=== PATIENT | male | born 1975 | race Caucasian/White ===

== ENCOUNTER 2018-08-31 20:24 | Emergency (ER) | payer OTHER ==
--- NOTE | 2018-08-31 20:43 | EDPHY ---
H & P Time Seen by Provider: 08/31/18 20:28 HPI/ROS: CHIEF COMPLAINT: Chest pain, shortness of breath HISTORY OF PRESENT ILLNESS: The patient is a 42-year-old male who is smoked for over 20 years. He recently stopped smoking. He has felt short of breath for the past week and a half. His symptoms slightly worsened this evening. He noticed central chest discomfort. He states it is hard to describe. He describes it as a long pain. He is worried that he has COPD. He denies fevers or chills. No worsening cough. No nausea vomiting. No lightheadedness or dizziness. Patient states that he had some tingling in his left toe but that is resolved. REVIEW OF SYSTEMS: 10 systems were reveiwed and are negative with the exception of the elements mentioned in the history of present illness. Past Medical/Surgical History: Includes depression Past surgical history: Includes adenoidectomy, mass removed from the roof of his mouth Social history: Long time smoker. Recently quit. Denies drugs or alcohol Smoking Status: Former smoker Physical Exam: Vitals noted. GENERAL: Anxious appearing, in no acute distress, alert. HEENT: Eyes normal to inspection, normal pharynx, no signs of dehydration. NECK: Normal, supple. RESPIRATORY: Clear to auscultation bilaterally, no rales, rhonchi or wheezing. Chest wall: Mild tenderness to palpation over his sternum. This replicates his pain. CVS: Regular rate and rhythm, no rubs, murmurs, or gallops. ABDOMEN: Soft, nontender, nondistended, no organomegaly. BACK: Normal to inspection, no CVA tenderness. SKIN: Normal color, no rash, warm, dry. No pallor. EXTREMITIES: No pedal edema, no calf tenderness, no Homans sign or cords, no joint swelling. NEURO/PSYCH: Alert and oriented, anxious appearing, normal motor sensory exam. Constitutional: Initial Vital Signs Temperature (C) 36.6 C 08/31/18 20:26 Heart Rate 86 08/31/18 20:26 Respiratory Rate 20 08/31/18 20:26 Blood Pressure 169/113 H 08/31/18 20:26 O2 Sat (%) 96 08/31/18 20:26 O2 Delivery Mode Room Air Allergies/Adverse Reactions: No Known Allergies Allergy (Verified 08/31/18 20:25) Home Medications: Medication Instructions Recorded NK [No Known Home Meds] 08/31/18 Medical Decision Making - Diagnostics Imaging Results: Imaging Impressions Chest X-Ray 08/31/18 20:45 Impression: No acute findings in the chest. ED Course/Re-evaluation: In the emergency department discussed possible etiologies patient. I answered all his questions. IV was placed. Laboratory studies, chest x-ray and EKG were ordered. Patient was given Toradol 30 mg IV. Patient is low risk per Wells criteria. PERC rule is negative. EKG shows normal sinus rhythm, normal rate, normal axis, normal intervals. There are no ST or T-wave abnormalities. EKG is normal as interpreted by me. Chest x-ray: No acute disease noted. Troponin is negative. CBC and chemistry unremarkable. I discussed the results with the patient. I answered all his questions. He was given warnings prior to leaving. He will return with worsening symptoms. Differential Diagnosis: My differential includes but is not limited to ACS, acute SD, pleurisy, bronchitis, pneumonia, GERD, hiatal hernia, pulmonary embolus - Data Points Laboratory Results: Laboratory Results 08/31/18 20:48 08/31/18 20:48 08/31/18 08/31/18 08/31/18 20:48 20:48 20:44 WBC 6.39 10^3/uL 10^3/uL (3.80-9.50) RBC 5.96 10^6/uL 10^6/uL (4.40-6.38) Hgb 17.9 g/dL H g/dL (13.7-17.5) Hct 52.5 % H % (40.0-51.0) MCV 88.1 fL fL (81.5-99.8) MCH 30.0 pg pg (27.9-34.1) MCHC 34.1 g/dL g/dL (32.4-36.7) RDW 12.8 % % (11.5-15.2) Plt Count 244 10^3/uL 10^3/uL (150-400) MPV 8.6 fL L fL (8.7-11.7) Neut % (Auto) 54.6 % % (39.3-74.2) Lymph % (Auto) 34.0 % % (15.0-45.0) [place] % (Auto) 8.6 % % (4.5-13.0) Eos % (Auto) 2.0 % % (0.6-7.6) Baso % (Auto) 0.6 % % (0.3-1.7) Nucleat RBC Rel Count 0.0 % % (0.0-0.2) Absolute Neuts (auto) 3.49 10^3/uL 10^3/uL (1.70-6.50) Absolute Lymphs (auto) 2.17 10^3/uL 10^3/uL (1.00-3.00) Absolute Monos (auto) 0.55 10^3/uL 10^3/uL (0.30-0.80) Absolute Eos (auto) 0.13 10^3/uL 10^3/uL (0.03-0.40) Absolute Basos (auto) 0.04 10^3/uL 10^3/uL (0.02-0.10) Absolute Nucleated RBC 0.00 10^3/uL 10^3/uL (0-0.01) Immature Gran % 0.2 % % (0.0-1.1) Immature Gran # 0.01 10^3/uL 10^3/uL (0.00-0.10) Sodium 140 mEq/L mEq/L (135-145) Potassium 3.9 mEq/L mEq/L (3.5-5.2) Chloride 106 mEq/L mEq/L (97-110) Carbon Dioxide 21 mEq/l L mEq/l (22-31) Anion Gap 13 mEq/L mEq/L (6-14) BUN 19 mg/dL mg/dL (7-23) Creatinine 1.0 mg/dL mg/dL (0.7-1.3) Estimated GFR > 60 Glucose 100 mg/dL mg/dL (70-100) Calcium 9.5 mg/dL mg/dL (8.5-10.4) POC Troponin I 0.00 ng/mL ng/mL (0.00-0.08) Medications Given: Discontinued Medications Al Hydroxide/Mg Hydroxide (Maalox Susp) 30 ml PO ONCE ONE Stop: 08/31/18 21:56 Last Admin: 08/31/18 22:00 Dose: 30 ml Hyoscyamine Sulfate (Levsin, Hyomax-Sl) 0.25 mg PO ONCE ONE Stop: 08/31/18 21:56 Last Admin: 08/31/18 21:59 Dose: 0.25 mg Ketorolac Tromethamine (Toradol) 30 mg IVP EDNOW ONE Stop: 08/31/18 20:47 Last Admin: 08/31/18 20:58 Dose: 30 mg Lidocaine (Lidocaine 2% Viscous) 15 ml PO ONCE ONE Stop: 08/31/18 21:56 Last Admin: 08/31/18 22:00 Dose: 15 ml Point of Care Test Results: Chemistry 08/31/18 20:44 POC Troponin I 0.00 ng/mL ng/mL (0.00-0.08) Departure - Departure Disposition: Home, Routine, Self-Care Clinical Impression: Chest pain Qualifiers: Chest pain type: unspecified Qualified Code(s): R07.9 - Chest pain, unspecified Condition: Good Instructions: Chest Pain (ED) Additional Instructions: Return with increasing chest pain, shortness of breath, fever or any other concerns. You been given follow-up with Dr. Pagan from pulmonology. Call to make an appointment. You can see anybody in his group. Referrals: Felix Islas DO [Doctor of Osteopathy] - 3-4 days, if not improved Eduard Pagan MD [Medical Doctor] - 5-7 days, call for appt.
[2018-08-31] MEDS ORDERED: KETOROLAC 30 MG/1 ML SDV IVP ONE (20:46)
[2018-08-31 20:53] LABS: PLATELET COUNT 244 10^3/uL (150-400)
[2018-08-31] MEDS ORDERED: LIDOCAINE 2% VISCOUS 15 ML UDCUP PO ONE (21:55)
[2018-08-31] MEDS ORDERED: MAG HYDROX/AL HYDROX/SIMETH 30 ML UDCUP PO ONE (21:55)
[2018-08-31] MEDS ORDERED: HYOSCYAMINE SULFATE 0.125 MG TAB PO ONE (21:55)
--- NOTE | 2018-08-31 23:13 | CPEKG ---
Test Reason : OPEN Blood Pressure : / mmHG Vent. Rate : 075 BPM Atrial Rate : 075 BPM P-R Int : 165 ms QRS Dur : 096 ms QT Int : 376 ms P-R-T Axes : 024 008 020 degrees QTc Int : 420 ms Sinus rhythm Confirmed by Hailee Marino ([id number]) on 08/31/2018 11:12:27 PM Referred By: Hailee Marino Confirmed By:Hailee Marino
[2018-08-31 23:16] VITALS: BP 113/74
== END 2018-08-31 23:15 | disposition home or self-care (01) ==
DX: R07.9 Chest pain, unspecified (principal); R06.02 Shortness of breath; Z87.891 Personal history of nicotine dependence
CPT/HCPCS: 84484-ER; 96374; J1885